=== PATIENT | female | born 1995 | race African-American/Black ===

== ENCOUNTER 2016-12-15 04:35 | Emergency (ER) | payer BC ==
[~2016-12-15] VITALS: Ht 177.8 cm; Wt 66.0 kg
[2016-12-15 04:38] VITALS: BP 116/72; PULSE 94; RESP 18; TEMP 98; O2SAT 98
[2016-12-15] MEDS ORDERED: SODIUM CHLOR 0.9% 1000 ML INJ 1,000 ML IV ONE (05:00)
[2016-12-15] MEDS ORDERED: ONDANSETRON HCL 4 MG/2 ML VIAL IV ONE (05:00)
[2016-12-15 05:20] VITALS: O2SAT 100
[2016-12-15 05:24] LABS: AUTOMATED NEUTROPHIL # 2.2 TH/MM3 (1.8-7.7); BASOPHIL % 0.3 % (0.0-2.0); EOSINOPHIL % 0.2 % (0.0-4.0); HEMATOCRIT 36.8 % (35.0-46.0); HEMO FLAGS DIFF FINAL; LYMPH % 21.4 % (9.0-44.0); LYMPHOCYTE # 0.7 TH/MM3 (1.0-4.8); MEAN CELL VOLUME 81.8 FL (80.0-100.0); MEAN CORPUSCULAR HEMOGLOBIN 27.7 PG (27.0-34.0); MEAN CORPUSCULAR HGB CONC 33.8 % (32.0-36.0); MONO % 14.9 % (0.0-8.0); NEUT % 63.2 % (16.0-70.0); PLATELET COUNT 186 TH/MM3 (150-450); RED CELL DISTRIBUTION WIDTH 14.9 % (11.6-17.2); WHITE BLOOD COUNT 3.4 TH/MM3 (4.0-11.0)
[2016-12-15 05:50] LABS: ANION GAP 9 MEQ/L (5-15); BICARBONATE 25.6 MEQ/L (21.0-32.0); BLOOD UREA NITROGEN 13 MG/DL (7-18); CHLORIDE 104 MEQ/L (98-107); GLOMERULAR FILTRATION RATE 74 ML/MIN (>89); POTASSIUM 3.3 MEQ/L (3.5-5.1); SODIUM (NA) 139 MEQ/L (136-145)
--- NOTE | 2016-12-15 05:53 | PD ---
HPI Chief Complaint: Cold / Flu Symptoms Time Seen by Provider: 04:50 Travel History International Travel<30 days: No Contact w/Intl Traveler<30days: No Traveled to known affect area: No History of Present Illness HPI The patient is a 21 year old female who presents to the [facility] emergency department with a history of reportedly beginning to feel ill on Thursday. She reports that she developed body aches, a fever with a MAXIMUM TEMPERATURE of 101, a dry cough, and nausea with vomiting 1. The patient denies having any nasal discharge or sore throat. The patient denies having any diarrhea. She reports that her emesis had a scant amount of bloody mucus in it which concerned her that she came in. The patient reports that she tried to work today although the symptoms were severe, therefore she left work early. The patient denies any neck pain, chest pain, shortness of breath, abdominal pain, diarrhea, urinary symptoms, or neurologic symptoms. PFSH Past Medical History Narrative Medical The patient's past medical history is reportedly significant for sports-induced asthma. Asthma: Yes (Sports induced. ) Influenza Vaccination: No ?: Not LMP: 12/06/16 : 1 Para: 0 Past Surgical History Narrative Surgical The patient's past surgical history is reportedly significant for Surgical History: No Previous Surgery Social History Alcohol Use: Yes (occ) Tobacco Use: No (quit 3 mos ago per pt) Substance Use: No Allergies-Medications (Allergen,Severity, Reaction): Coded Allergies: No Known Allergies (Unverified , 12/15/16) Reported Meds & Prescriptions Reported Meds & Active Scripts Active No Active Prescriptions or Reported Medications Physical Exam Narrative General: The patient is well-developed well-nourished female in no acute distress. Head and Neck exam: Head is normocephalic atraumatic. Eyes: Pupils are equal round and reactive to light. Nose: Midline septum with pink mucous membranes Mouth: Dentition unremarkable. Moist mucus membranes. Posterior oropharynx is mildly erythematous. No tonsillar hypertrophy. Uvula midline. Airway patent. Neck: No palpable lymphadenopathy. No nuchal rigidity. No thyromegaly. Cardiovascular: Regular rate and rhythm without murmurs, gallops, or rubs. No pulse deficit to the extremities. Lungs: Clear to auscultation bilaterally. No wheezes, rhonchi, or rales. She has an occasional dry cough on examination. Abdomen: Soft, without tenderness to palpation in all 4 quadrants of the abdomen. No guarding, rebound, or rigidity. Normal bowel sounds are audible. Extremities: No clubbing, cyanosis, or edema. 2+ pulses in all 4 extremities. Back: No spinous process tenderness to palpation. No costovertebral angle tenderness to palpation. Neurologic Exam: Grossly nonfocal. Skin Exam: No rash noted. Intact skin that is warm and dry. Data Data Last Documented VS Vital Signs Date Time Temp Pulse Resp B/P Pulse Ox O2 Delivery O2 Flow Rate FiO2 12/15/16 06:49 72 18 100 12/15/16 05:20 Room Air 12/15/16 04:38 98.0 116/72 Orders Complete Blood Count With Diff (12/15/16 04:55) Basic Metabolic Panel (Bmp) (12/15/16 04:55) C-Reactive Protein (Crp) (12/15/16 04:55) Lipase (12/15/16 04:55) Influenzae A/B Antigen (12/15/16 04:55) Chest, Single Ap (12/15/16 04:55) Iv Access Insert/Monitor (12/15/16 04:55) Ecg Monitoring (12/15/16 04:55) Oximetry (12/15/16 04:55) Ed Urine Pregnancytest Poc (12/15/16 04:55) Sodium Chlor 0.9% 1000 Ml Inj (Ns 1000 M (12/15/16 05:00) Ondansetron Inj (Zofran Inj) (12/15/16 05:00) C Diff Toxin Pcr (12/15/16 05:35) Stool Wbc (Leukocytes) (12/15/16 05:35) Enteric Path (Stool) (12/15/16 05:35) Potassium Chloride (Kcl) (12/15/16 06:15) Labs Laboratory Tests Test 12/15/16 04:33 White Blood Count 3.4 TH/MM3 Red Blood Count 4.50 MIL/MM3 Hemoglobin 12.5 GM/DL Hematocrit 36.8 % Mean Corpuscular Volume 81.8 FL Mean Corpuscular Hemoglobin 27.7 PG Mean Corpuscular Hemoglobin 33.8 % Concent Red Cell Distribution Width 14.9 % Platelet Count 186 TH/MM3 Mean Platelet Volume 8.5 FL Neutrophils (%) (Auto) 63.2 % Lymphocytes (%) (Auto) 21.4 % Monocytes (%) (Auto) 14.9 % Eosinophils (%) (Auto) 0.2 % Basophils (%) (Auto) 0.3 % Neutrophils # (Auto) 2.2 TH/MM3 Lymphocytes # (Auto) 0.7 TH/MM3 Monocytes # (Auto) 0.5 TH/MM3 Eosinophils # (Auto) 0.0 TH/MM3 Basophils # (Auto) 0.0 TH/MM3 CBC Comment DIFF FINAL Differential Comment Sodium Level 139 MEQ/L Potassium Level 3.3 MEQ/L Chloride Level 104 MEQ/L Carbon Dioxide Level 25.6 MEQ/L Anion Gap 9 MEQ/L Blood Urea Nitrogen 13 MG/DL Creatinine 1.13 MG/DL Estimat Glomerular Filtration 74 ML/MIN Rate Random Glucose 97 MG/DL Calcium Level 8.4 MG/DL C-Reactive Protein LESS THAN 0.29 MG/DL Lipase 127 U/L MDM Medical Decision Making Medical Screen Exam Complete: Yes Emergency Medical Condition: Yes Medical Record Reviewed: Yes Interpretation(s) Laboratory Tests Test 12/15/16 04:33 White Blood Count 3.4 TH/MM3 Red Blood Count 4.50 MIL/MM3 Hemoglobin 12.5 GM/DL Hematocrit 36.8 % Mean Corpuscular Volume 81.8 FL Mean Corpuscular Hemoglobin 27.7 PG Mean Corpuscular Hemoglobin 33.8 % Concent Red Cell Distribution Width 14.9 % Platelet Count 186 TH/MM3 Mean Platelet Volume 8.5 FL Neutrophils (%) (Auto) 63.2 % Lymphocytes (%) (Auto) 21.4 % Monocytes (%) (Auto) 14.9 % Eosinophils (%) (Auto) 0.2 % Basophils (%) (Auto) 0.3 % Neutrophils # (Auto) 2.2 TH/MM3 Lymphocytes # (Auto) 0.7 TH/MM3 Monocytes # (Auto) 0.5 TH/MM3 Eosinophils # (Auto) 0.0 TH/MM3 Basophils # (Auto) 0.0 TH/MM3 CBC Comment DIFF FINAL Differential Comment Sodium Level 139 MEQ/L Potassium Level 3.3 MEQ/L Chloride Level 104 MEQ/L Carbon Dioxide Level 25.6 MEQ/L Anion Gap 9 MEQ/L Blood Urea Nitrogen 13 MG/DL Creatinine 1.13 MG/DL Estimat Glomerular Filtration 74 ML/MIN Rate Random Glucose 97 MG/DL Calcium Level 8.4 MG/DL C-Reactive Protein LESS THAN 0.29 MG/DL Lipase 127 U/L Last Impressions Chest X-Ray 12/15/16 0455 Signed Impressions: Service Date/Time: Thursday, December 15, 2016 05:16 - CONCLUSION: No acute disease. Kelvin Thomas MD Differential Diagnosis Influenza, versus gastroenteritis, versus pneumonia, versus other viral syndrome Narrative Course During the course of the patients emergency department visit, the patients history, examination, and differential diagnosis were reviewed with the patient. The patient had IV access obtained and blood work sent for analysis. The patient states on a pvc monitor with oximetry and blood pressure monitoring. The patient was provided normal saline 1 L IV fluid bolus, 4 mg of Zofran IV. The patients laboratory studies were reviewed and remarkable for a white count of 3.4, hemoglobin 12.5, platelets 186, 14.9 monocytes visit metabolic profile is remarkable for potassium of 3.3 which was supplemented orally, creatinine 1.13, calcium 8.4, C-reactive protein less than 0.29, lipase 127. Influenza test was negative. Radiology studies were reviewed and remarkable for a chest x-ray that was unremarkable. Given the patient's monocytosis and low C-reactive protein the patient's symptoms are likely related to a viral syndrome. The patient will be discharged home with a prescription for Zofran for nausea. The patient was given a work excuse for 2 days. The patient is resting comfortably and feels better, is alert and in no distress. The patients results and examination findings were discussed with the patient. The repeat examination is unremarkable and benign. The history, exam, diagnostic testing, and current condition do not suggest any significant pathology to warrant further testing, continued ED treatment, admission, or surgical evaluation at this point. The vital signs have been stable. The patient does not have uncontrollable pain, intractable vomiting, or other significant symptoms. The patient's condition is stable and appropriate for discharge. The patient will pursue further outpatient evaluation with a primary care physician or other designated or consulting physician as indicated in the discharge instructions. The patient expressed understanding and was agreeable with this plan. Diagnosis Primary Impression: Viral syndrome Additional Impression: Vomiting Qualified Code: R11.2 - Non-intractable vomiting with nausea, unspecified vomiting type Referrals: Primary Care Physician Patient Instructions: Acute Nausea and Vomiting (ED), General Instructions, Viral Syndrome (ED) Departure Forms: Tests/Procedures, Work Release Enter return to work date: Dec 18, 2016 Med/Other Pt SpecificInfo: Prescription(s) given Scripts Ondansetron Odt (Zofran Odt)4 Mg Tab4 Mg SL Q6HR PRN (Nausea/Vomiting) #4 TAB Ref 0 Prov:Kiki Tavera MD 12/15/16 Disposition: 01 DISCHARGE HOME Condition: Stable Kiki Tavera MD Dec 15, 2016 05:53
--- NOTE | 2016-12-15 06:07 | RADRPT ---
EXAM DATE/TIME: 12/15/2016 05:16 [facility] COMPARISON: No previous studies available for comparison. INDICATIONS : Fever. MEDICAL HISTORY : None. SURGICAL HISTORY : None. ENCOUNTER: Initial ACUITY: 1 day PAIN SCORE: 0/10 LOCATION: Bilateral chest FINDINGS: A single view of the chest demonstrates the lungs to be symmetrically aerated without evidence of mas s, infiltrate or effusion. The cardiomediastinal contours are unremarkable. Osseous structures are intact. CONCLUSION: No acute disease. Kelvin Thomas MD on December 15, 2016 at 6:06 Board Certified Radiologist. This report was verified electronically.
[2016-12-15] MEDS ORDERED: POTASSIUM CHLORIDE 20 MEQ CONTROLLED RELEASE TAB PO ONE (06:15)
[2016-12-15 06:49] VITALS: PULSE 72; RESP 18; O2SAT 100
[2016-12-15] MEDS ORDERED: ZOFR4TAB3 SL (06:57)
== END 2016-12-15 07:33 | disposition home or self-care (01) ==
LOC: NEPE 04:35
DX: B34.9 Viral infection, unspecified (principal)
CPT/HCPCS: 71010; 80048; 83690; 84703; 85025; 86140; 87804; 96361; 96374; 99284; J2405; J7030

== ENCOUNTER 2017-08-06 11:51 | Emergency (ER) | payer BC ==
[~2017-08-06] VITALS: Ht 177.8 cm; Wt 65.0 kg
[~2017-08-06 11:51] MED LIST: ZOFR4TAB3 SL
[2017-08-06 11:52] VITALS: BP 113/54; PULSE 91; RESP 17; TEMP 98.6; O2SAT 98
--- NOTE | 2017-08-06 12:00 | PD ---
Physical Exam Time Seen by Provider: 11:55 Narrative 21-year-old female presents to the emergency Department with complaint of mid abdominal pain since Thursday. Reports feeling of constipation; says she had bowel movement this morning, but is not "coming out all the way." Reports nausea without vomiting. Denies fevers. No vaginal discharge or dysuria. Patient seen in triage. Vital signs reviewed. Patient awaiting medical bed. Data Data Last Documented VS Vital Signs Date Time Temp Pulse Resp B/P (MAP) Pulse Ox O2 Delivery O2 Flow Rate FiO2 08/06/17 11:52 98.6 91 17 113/54 (73) 98 Room Air MDM Supervised Visit with FARRAH: Risa Klein Aug 06, 2017 11:59
--- NOTE | 2017-08-06 13:37 | PD ---
HPI Chief Complaint: Abdominal Pain Time Seen by Provider: 12:23 Travel History International Travel<30 days: No Contact w/Intl Traveler<30days: No Traveled to known affect area: No History of Present Illness HPI 21-year-old female presents to the emergency room for evaluation of crampy gas pains, nausea, and constipation for the past 4 days. Patient states she took a laxative one week ago after feeling constipated. She had normal bowel movements that day and the following 3 days but 4 days ago she began having problems. Her bowel movements went from occurring daily and being normal in consistency to multiple, small, pellet and loose stools over the past 4 days. She states when she eats she is developing nausea but has not vomited. She denies fever, chills, hematemesis, melena, and hematochezia. No chronic medical conditions or daily medications. She denies fever, chills, dysuria, urgency, frequency, vaginal discharge, or flank pain. PFSH Past Medical History Asthma: Yes (Sports induced. ) : 1 Para: 0 Social History Alcohol Use: Yes (occ) Tobacco Use: No (quit 3 mos ago per pt) Substance Use: No Allergies-Medications (Allergen,Severity, Reaction): Coded Allergies: No Known Allergies (Unverified , 08/06/17) Reported Meds & Prescriptions Reported Meds & Active Scripts Active Metamucil Original Texture (Psyllium Hydrophilic Mucilloid) 3.4 Gram/7 Gram Pow 1 Scoop PO TID PRN 1 rounded TEASPOON in 8 oz of liquid at the first sign of irregularity. Lactulose Liq (Lactulose) 10 Gm/15 Ml Soln 30 Ml PO EVERY OTHER DAY PRN 10 Days Review of Systems Except as stated in HPI: all other systems reviewed are Neg Physical Exam Narrative GENERAL: Well-nourished, well-developed female in no acute distress. Afebrile. Ambulatory. SKIN: Focused skin assessment warm/dry. HEAD: Normocephalic. EYES: No scleral icterus. No injection or drainage. NECK: Supple, trachea midline. No JVD or lymphadenopathy. CARDIOVASCULAR: Regular rate and rhythm without murmurs, gallops, or rubs. RESPIRATORY: Breath sounds equal bilaterally. No accessory muscle use. No crackles, rales, wheezes, or rhonchi. GASTROINTESTINAL: Abdomen soft, nondistended. Mild tenderness to palpation of the left lower quadrant. No peritoneal signs. No rebound tenderness or guarding. No CVA tenderness. Data Data Last Documented VS Vital Signs Date Time Temp Pulse Resp B/P (MAP) Pulse Ox O2 Delivery O2 Flow Rate FiO2 08/06/17 15:27 08/06/17 11:52 98.6 91 17 98 Room Air Orders Orders Abdomen, Flat & Upright (08/06/17 ) Ed Urine Pregnancytest Poc (08/06/17 13:23) Urinalysis - C+S If Indicated (08/06/17 13:23) Ondansetron Odt (Zofran Odt) (08/06/17 14:45) Ed Discharge Order (08/06/17 14:45) Metoclopramide (Reglan) (08/06/17 15:30) Labs Laboratory Tests Test 08/06/17 13:40 Urine Color YELLOW Urine Turbidity CLEAR Urine pH 7.5 Urine Specific [place] 1.009 Urine Protein NEG mg/dL Urine Glucose (UA) NEG mg/dL Urine Ketones NEG mg/dL Urine Occult Blood NEG Urine Nitrite NEG Urine Bilirubin NEG Urine Urobilinogen LESS THAN 2.0 MG/DL Urine Leukocyte Esterase NEG Urine RBC 1 /hpf Urine WBC 2 /hpf Urine Squamous Epithelial Cells 2 /hpf Urine Bacteria RARE /hpf Microscopic Urinalysis Comment CULT NOT INDICATED MDM Medical Decision Making Medical Screen Exam Complete: Yes Emergency Medical Condition: Yes Medical Record Reviewed: Yes Differential Diagnosis Viral syndrome, gastroenteritis, constipation, obstruction Narrative Course 21-year-old female presents to the emergency room for evaluation of constipation. Patient states she has been constipated over the past 3 days with associated nausea and cramping. States she is having small, frequent bowel movements that are either pellet-like or diarrhea. No vomiting, urinary symptoms, hematemesis, hematochezia, or melena. Vital signs stable. No history of fever. Physical exam is reassuring. Patient is in no acute distress , resting comfortably. Abdomen soft, mild TTP to lower quadrant. No peritoneal signs, guarding, or rebound tenderness. UA is unremarkable. test negative. X-ray shows moderate stool in the colon. Patient was given Reglan in the emergency room for nausea and discharged with prescriptions for Metamucil and lactulose. Told to follow up with her primary care physician or return for worsening symptoms. She understands and agrees to plan. Diagnosis Primary Impression: Constipation Qualified Codes: K59.00 - Constipation, unspecified Referrals: Primary Care Physician Additional Instructions: Rest and drink plenty of fluids. Take Metamucil: 25 g/day until bowel movements become regular, then decrease slowly. Follow-up with a primary care physician. Return to the emergency room for worsening symptoms. Scripts Psyllium Powder (Metamucil Original Texture) 3.4 Gram/7 Gram Pow 1 SCOOP PO TID Y for CONSTIPATION, #1 CONTAINER 0 Refills 1 rounded TEASPOON in 8 oz of liquid at the first sign of irregularity. Prov: Priscilla Palacios MD 08/06/17 Lactulose Liq (Lactulose Liq) 10 Gm/15 Ml Soln 30 ML PO EVERY OTHER DAY Y for CONSTIPATION for 10 Days, ML 0 Refills Prov: Priscilla Palacios MD 08/06/17 Disposition: 01 DISCHARGE HOME Condition: Stable Claudia He Aug 06, 2017 13:37
[2017-08-06 14:13] LABS: BACTERIA, URINE RARE /hpf; BLOOD, URINE NEG (NEG); COMMENT (UR) CULT NOT INDICATED; CULTURE IF INDICATED CULT NOT INDICATED; GLUCOSE,URINE NEG (NEG); KETONE, URINE NEG (NEG); NITRITE,URINE NEG (NEG); PH, URINE 7.5 (5.0-8.5); SQUAMOUS EPITHELIAL CELL URINE 2 /hpf (0-5); URINE COLOR YELLOW (YELLW/STRAW)
--- NOTE | 2017-08-06 14:23 | RADRPT ---
EXAM DATE/TIME: 08/06/2017 13:59 [facility] COMPARISON: No previous studies available for comparison. INDICATIONS : Constipation and abdominal pain. MEDICAL HISTORY : None. SURGICAL HISTORY : None. ENCOUNTER: Initial ACUITY: 1 week PAIN SCORE: 8/10 LOCATION: Abdomen. FINDINGS: Supine and upright views of the abdomen were performed. The abdominal bowel gas pattern is normal. No air fluid levels are seen. No abnormal masses, calcifications, or organomegaly is seen. The visu alized lower lungs are clear. No evidence of free intraperitoneal gas. The osseous structures are u nremarkable. CONCLUSION: No acute disease. Isreal Monge MD on August 06, 2017 at 14:21 Board Certified Radiologist. This report was verified electronically.
[2017-08-06] MEDS ORDERED: META48.53 PO (14:45)
[2017-08-06] MEDS ORDERED: LACT10SO PO (14:45)
[2017-08-06] MEDS ORDERED: ONDANSETRON ODT 4 MG TAB PO ONE (14:45)
[2017-08-06] MEDS ORDERED: METOCLOPRAMIDE HCL 10 MG TAB PO ONE (15:30)
== END 2017-08-06 15:31 | disposition home or self-care (01) ==
LOC: NEPD 11:51
DX: K59.00 Constipation, unspecified (principal); J45.909 Unspecified asthma, uncomplicated; Z87.891 Personal history of nicotine dependence
CPT/HCPCS: 74020; 81001; 84703; 99284